=== PATIENT | male | born 1955 | race Two or more races ===

== ENCOUNTER → 2025-07-04 | Emergency (ER) | payer OTHER ==
[~2025-07-04] VITALS: Ht 177.8 cm; Wt 77.1 kg
[~2025-07-04] MED LIST: BACITRACIN-NEOMYCIN-POLYMYXIN 0.9 GM PACKET TOP ONE; CEFTRIAXONE SODIUM 1,000 MG VIAL IM ONE; CEFTRIAXONE SODIUM 1,000 MG VIAL ONE; CEPHALEXIN500 MG PO; LIDOCAINE HCL 1% 10ML VIAL ONE; LIDOCAINE HCL 1% 2ML VIAL IJ ONE; NORVASC2.5 M1 PO; ROSUVASTATIN CAL5 MG PO; TOPROL XL25 M1 PO
== END | disposition home or self-care (01) ==
LOC: ER 18:59
DX: S01.01XA Laceration without foreign body of scalp, initial encounter (principal); W06.XXXA Fall from bed, initial encounter; Y93.89 Activity, other specified; Y92.59 Other trade areas as the place of occurrence of the external cause; Y99.9 Unspecified external cause status; I10 Essential (primary) hypertension
CPT/HCPCS: 12002; 96372; 99283; J0696